=== PATIENT | female | born 1940 | race Caucasian/White ===

== ENCOUNTER → 2019-06-19 16:22 | Outpatient (CLI) | payer OTHER, SELFPAY ==
[2019-06-19 13:37] VITALS: BMI 21.9
--- NOTE | 2019-06-20 13:30 | ASPS_PTH ---
PATIENT: MUSA VAZQUEZ LOC: [facility] U#:[id number] AGE/SX: 84/F ROOM: RE06/19/[address]: Dr. Rosales Taylor MD : 1940 BED: DIS: SPEC #: [id number] RECD: 06/21/19 16:10 STATUS: DEMOND ARMANI #: [id number] STAN: 06/20/19 13:[address]: Rosales Taylor DEPT: CYTOLOGY RECD BY: Earl Klein ENTERED: 06/22/19 13:53 SP TYPE: ASPIRATION OTHR DR: Dr. Lukasz Patel MD Tissues: A - Thyroid gland, NOS B - Thyroid gland, NOS Procedures: Special Stain Group II Cytology Other HEADER OPERATION: Thyroid FNA PRE-OP DIAGNOSIS: Thyroid nodules TISSUE SUBMITTED: A. Right thyroid slides, B. Left thyroid slides DIAGNOSIS CYTOLOGY A. Right thyroid nodule, FNA (Smear): Atypical follicular cells of undetermined significance. Adequate for evaluation. B. Left thyroid nodule, FNA (Smear): Suggestive of benign follicular nodule with extensive cystic changes. See cytology study and comment. SJ:avis 06/23/2019 COMMENT Immediate cytologic evaluation to determine adequacy is not applicable. Correlation with clinical, radiologic findings and appropriate follow up are necessary. CYTOLOGY STUDY Slides are reviewed. B. Specimen is limited in evaluation due to lack of adequate number of follicular cells. The specimen predominantly consists of numerous macrophages and a few clusters of benign follicular cells. Case has been reviewed in consultation with Dr. Valdivia who concurs with the above diagnosis. IDC:AM CYTOLOGY GROSS A. Received are 6 smears labeled with the patient's name and designated per the requisition as right thyroid. Submitted for staining. B. Received are 6 smears labeled with the patient's name and designated per the requisition as left thyroid. Submitted for staining. / RB:chandrakant 06/22/19 TC: 5 CPT: 65882 x2
== END ==
PROVIDERS: Family Provider Family Medicine; PCP Family Medicine; Referring Provider Surgery; Visit Provider Surgery
DX: E04.2 Nontoxic multinodular goiter (principal)
CPT/HCPCS: 88161; 88313

== ENCOUNTER 2019-08-04 09:29 | Observation (INO) | payer MEDICARE, SELFPAY ==
[2019-07-09 06:55] VITALS: BMI 21.9
--- NOTE | 2019-07-09 08:40 | HP_ITS ---
Intake Vital Signs 07/09/19 Body Mass Index (BMI) 21.9 Intake Visit Reasons: thyroid FNA Chief Complaint: post thyroid FNA Title Attorney Required: No Is patient in pain?: No Allergies No Known Allergies Allergy (Verified 07/09/19 09:21) Medications ascorbic acid (vitamin C) 500 mg tablet 500 mg PO DAILY 06/03/19 [History Confirmed 07/09/19] cholecalciferol (vitamin D3) 1,000 unit capsule 1,000 unit PO DAILY 06/03/19 [History Confirmed 07/09/19] ergocalciferol (vitamin D2) 400 unit tablet 400 unit PO DAILY 06/03/19 [History Confirmed 07/09/19] garlic 1,000 mg capsule 1,000 mg PO QPC 06/03/19 [History Confirmed 07/09/19] geriatric multivit with iron and minerals tablet 1 tab PO DAILY 06/03/19 [History Confirmed 07/09/19] lecithin 1,200 mg capsule 1,200 mg PO DAILY 06/03/19 [History Confirmed 07/09/19] lutein 6 mg tablet 6 mg PO DAILY 06/03/19 [History Confirmed 07/09/19] omega-3 fatty acids 1,000 mg capsule 1,000 mg PO BID cap 06/03/19 [History Confirmed 07/09/19] vitamin B complex capsule 1 cap PO DAILY 06/03/19 [History Confirmed 07/09/19] Is last menstrual period known: No Post menopausal: Yes Patient : No PFSH Medical History Multiple thyroid nodules (Acute) Thyroid nodule (Acute) Surgical History Status post biopsy of thyroid gland (Acute ~05/2019) history excision uterine fibroids (Acute) Family History Grandmother CVA (cerebral vascular accident) Social History (Updated 07/09/19 @ 17:22 by Rosales Taylor MD) Smoking Status: Former smoker alcohol intake: never substance use type: does not use HPI HPI HPI: MUSA VAZQUEZ, is a 78 F who presents to the office today for HPI HPI Surgical H&P: Yes HPI: MUSA VAZQUEZ, is a 78 F who presents to the office today for surgical follow- up regarding bilateral thyroid fine-needle aspiration that I performed for her on June 19, 2019. She had a 2.8 cm nodule on the right and a 1.1 cm nodule on the left. They cytology on the right shows atypical follicular cells of undetermined significance. The cytology of the left suggests benign follicular nodule with extensive cystic change. She returns now for discussion regarding definitive surgical management. Intake Visit Reasons: Thyroid Nodules CT/US [facility] - aware to bring disc Title Attorney Required: No Is patient in pain?: No Allergies No Known Allergies Allergy (Unverified 06/03/19 08:19) Medications ascorbic acid (vitamin C) 500 mg tablet 500 mg PO DAILY 06/03/19 [History Confirmed 06/03/19] cholecalciferol (vitamin D3) 1,000 unit capsule 1,000 unit PO DAILY 06/03/19 [History Confirmed 06/03/19] ergocalciferol (vitamin D2) 400 unit tablet 400 unit PO DAILY 06/03/19 [History] garlic 1,000 mg capsule 1,000 mg PO QPC 06/03/19 [History Confirmed 06/03/19] geriatric multivit with iron and minerals tablet 1 tab PO DAILY 06/03/19 [History Confirmed 06/03/19] lecithin 1,200 mg capsule 1,200 mg PO DAILY 06/03/19 [History Confirmed 06/03/19] lutein 6 mg tablet 6 mg PO DAILY 06/03/19 [History Confirmed 06/03/19] omega-3 fatty acids 1,000 mg capsule 1,000 mg PO BID cap 06/03/19 [History Confirmed 06/03/19] vitamin B complex capsule 1 cap PO DAILY 06/03/19 [History Confirmed 06/03/19] PFSH Medical History Thyroid nodule (Acute) Surgical History (Updated 06/03/19 @ 08:17 by Vira Stahl) history excision uterine fibroids (Acute) Family History (Updated 06/03/19 @ 08:18 by Vira Stahl) Grandmother CVA (cerebral vascular accident) Social History (Updated 06/03/19 @ 08:43 by Rosales Taylor MD) Smoking Status: Former smoker alcohol intake: never substance use type: does not use HPI HPI HPI: MUSA VAZQUEZ, is a 78 F who presents to the office today for surgical consultation regarding incidentally identified bilateral thyroid nodules. The patient is kindly referred by Dr. Lukasz Patel and a written compromise surgical consult recommendations will be returned to him. Patient is a 78-year-old female. She has never previously had any history of thyroid disease. No history of head neck radiation treatment. No family history of thyroid disease. She has no difficulty swallowing. No neck pain. No hoarseness. She was a very remote cigarette smoker but quit 45 years ago. She did detect a nodule at the left sternoclavicular joint. To assist with that on May 08, 2019 at [facility] she had a CT neck. This demonstrated a partially enhancing right thyroid nodule measuring 2.3 x 1.5 x 1.5 cm. There was felt to be a sub-centimeter nodule on the left. There were no enlarged lymph nodes. The left sternoclavicular articulation had a 1.3 x 1.4 x 1.7 cm fluid collection. Scarring in the pulmonary apices were identified. This is being followed up with Dr. Patel. On May 20, 2019 at [facility] she had a thyroid ultrasound. The right gland measures 2.8 cm in maximum dimension with a well marginated 2.4 cm nodule. The left lobe measures 3.1 cm in length and there is a 11 mm nodule with moderately suspicious features. Follow-up was recommended at 1 and 2 and 3 and 5 years. HPI HPI HPI: MUSA VAZQUEZ, is a 78 F who presents to the office today for ROS General General: No weight change, appetite, fatigue, colon cancer, breast cancer or weakness HEENT HEENT: No difficulty swallowing, eye injury, eye surgery, swollen glands or hoarseness Endo Endocrine: No thyroid disease, diabetes mellitus, thyroid cancer, Hair loss, heat intolerance or cold intolerance Skin Skin: No rash or changing moles Breast Breast: No left breast lump, right breast lump, nipple discharge, breast pain, abnormal mammogram, abnormal US or breast enlargement Musc Musculoskeletal: No back problems, arthritis, rheumatoid arthritis, gout or joint pain Cardio Cardiovascular: No murmur, pacemaker, heart disease, atrial fibrillation, high blood pressure, heart attack, heart stent, palpitations, shortness of breat with exertion or chest pain Psych Psychiatric: No depression, anxiety or hearing voices Resp Respiratory: No shortness of breath, No sleep apnea, No cough, No COPD, No asthma, No emphysema, No wheezing Gastro Gastrointestinal: No abdominal pain, No nausea or vomiting, No diarrhea, No constipation, No blood in stool, No acid reflux, No hemorrhoids, No ulcers, No gallbladder problem, No black,tarry stools Deshaun Hematologic: No blood thinners, No blood disorders, No bleeding, No anemia, No blood clots Neuro Neurologic: No system reviewed and no additional complaints, except as docu, No as per HPI, No abnormal walking, No abnormal hearing, No abnormal movements, No abnormal speech, No behavioral changes, No burning sensations, No confusion, No seizure-like activity, No unsteadiness, No dizziness, No localized weakness, No frequent falls, No headache(s), No lack of coordination, No loss of vision, No memory loss, No numbness, No other visual disturbances, No radiating pain, No restless legs, No sensory deficit, No fainting, No tingling, No tremor(s), No weakness, No other Exam Neck Other: Supple, nontender, no adenopathy, thyroid difficult to palpate not remarkable. Carotids are 3+ bilateral. Soft 1/6 bruits bilaterally [place] is negative Chest Breast Palpation: No nipple discharge Cardio Heart Sounds: no murmurs Assessment & Plan Problems 1. Multiple thyroid nodules E04.2 Exam Const General: cooperative, healthy appearing, comfortable, no acute distress HENMT Head: normal to inspection Eyes General: appearance normal, both eyes and all related structures Resp Effort & Inspection: normal respiratory effort Auscultation: clear to auscultation bilaterally Cardio Rate: regular rate Rhythm: regular rhythm GI Palpation: soft, no hepatosplenomegaly Auscultation: normal bowel sounds Skin General: no rashes or lesions noted Neuro General: alert, awake Cognition: normal cognition Extrem General: no calf tenderness bilaterally Psych Affect: normal affect Assessment & Plan Problems 1. Multiple thyroid nodules E04.2 Plan I have discussed treatment options with the patient. We have discussed right thyroid lobectomy versus total thyroidectomy versus ongoing observation. Extensively the technique, benefit, risks, alternatives have been discussed. She is well aware of the potential injury risk to parathyroids and recurrent laryngeal nerve. She is aware of a total thyroidectomy is pursued that the patient will require lifelong thyroid replacement therapy. She states that she takes multiple vitamin supplements and has no trouble taking pills. She has had an opportunity to ask and have questions answered. Although she is age 78 she demonstrates an extraordinarily high quality of life. With that in mind we will schedule and proceed at her discretion with a total thyroidectomy. 30-minute discussion CC: Dr. Lukasz Taylor M.D., F.A.C.S. Coding Level of Care Code Off vis,est,level 3 Diagnoses Multiple thyroid nodules E04.2 07/09/19 1722 <Electronically signed by Rosales willis MD> Date _ Rosales Taylor MD I have re-examined the patient. There are no clinical changes since date of exam.
--- NOTE | 2019-07-29 08:11 | EKG12_ITS ---
Test Reason : Blood Pressure : / mmHG Vent. Rate : 058 BPM Atrial Rate : 058 BPM P-R Int : 154 ms QRS Dur : 108 ms QT Int : 400 ms P-R-T Axes : 048 -24 012 degrees QTc Int : 392 ms Sinus bradycardia Incomplete right bundle branch block Voltage criteria for left ventricular hypertrophy Abnormal ECG Confirmed by ALMA DÍAZ ([id number]), online editor WENDY PAZ ([id number]) on 08/03/2019 12:08:13 PM Referred By: Rosales Taylor Confirmed By:ALMA DÍAZ
[2019-07-29 09:24] LABS: Hematocrit 46.5 % (37-47); Hemoglobin 14.8 g/dL (12.0-15.0); Mean Corp Hgb Conc 31.8 g/dL (32-36); Mean Corpuscular Hgb 29.5 pg (27.0-32.0); Mean Corpuscular Volume 92.8 fL (81-99); Mean Platelet Vol. 10.2 fl (6.2-12.0); Platelet Count 279 K/mm3 (150-450); RBC Distribution Width CV 13.2 % (11.6-14.6); RBC Distribution Width SD 44.5 fl (35.1-43.9); Red Blood Count 5.01 M/mm3 (4.2-5.4); White Blood Count 7.5 K/mm3 (4.4-11.0)
[2019-07-29 10:09] LABS: Anion Gap 8 (5-15); BUN 13 mg/dL (7-18); BUN/Creat Ratio 13.5 RATIO (10-20); Calcium,Total 9.5 mg/dL (8.5-10.1); Chloride 107 mmol/L (98-107); Creatinine, Serum 0.96 mg/dL (0.55-1.02); EST Glomerular Filtration Rate 60 mL/min (>60); Est Glom Filt Rate - Afr Amer 72 mL/min (>60); Glucose 67 mg/dL (74-106); Phosphorus 2.4 mg/dL (2.5-4.9); Potassium 4.5 mmol/L (3.5-5.1); Sodium Level 143 mmol/L (136-145); Thyroid Stim Hormone (TSH) 4.82 uIU/mL (0.358-3.74)
[2019-08-04] VITALS (10 sets, daily range): BP systolic 121–141; BP diastolic 44–63; PULSE 54–79; RESP 16–18; TEMP 36.3–36.7; O2SAT 95–99; BMI 21.5
--- NOTE | 2019-08-04 | IMM_PTH ---
PATIENT: MUSA VAZQUEZ LOC: [facility] U#:[id number] AGE/SX: 78/F ROOM: MS304 RE08/04/[address]: Dr. Rosales Taylor MD : 1940 BED: 1 DIS: 08/05/2019 SPEC #: [id number] RECD: 08/06/19 11:07 STATUS: DEMOND REQ #: [id number] STAN: 08/04/19 00:[address]: Rosales Taylor DEPT: IMMUNOHISTOCHEMISTRY RECD BY: Татьяна Black ENTERED: 08/06/19 11:11 SP TYPE: IMMUNO OTHR DR: Dr. Lukasz Patel MD Tissues: B - Thyroid gland, NOS A - Lymph node, NOS Procedures: CK8 (initial) CD56 (add) CK19 (add) GAL-3 (add) HBME (add) PHYSICIAN & INSTITUTION [place] [id number] SPECIMEN INFORMATION: Tissue Source: A - Pretracheal lymph node biopsy, B - Total thyroid Clinical Info: Multiple thyroid nodules Specimen Number: [id number] A, B1, B4, B10 CPT code: 64882 x2, 10851 x10 METHODOLOGY: Deparaffinized sections of prefer/formalin-fixed tissue or PAP/DQ stained slides are incubated with monoclonal/polyclonal antibodies/oligonucleotide probes. Localization is made via biotin free immunoperoxidase method. Appropriate controls are performed and reacted as expected. Results on target cell population are indicated in the following table: RESULTS: ANTIBODY / CLONE RESULT Block A CK8 (16arphV29) negative CK19 (A53-B/A2.26) negative Block B1 CK8 ([id number]) negative CK19 (A53-B/A2.26) negative Block B4 HBME1 (HBME-1) negative CK19 (A53-B/A2.26) negative GAL3 (9C4) negative CD56 (123C3.D5) positive Block B10 HBME1 (HBME-1) positive CK19 (A53-B/A2.26) positive GAL3 (9C4) positive CD56 (123C3.D5) negative These tests were developed and their performance characteristics determined by [facility]. They may not have been cleared or approved by the U.S. Food and Drug Administration. The FDA has determined that such clearance or approval is not necessary. The above immunohistochemical/dualISH markers are ordered and reviewed by the Pathologist. INTERPRETATION: A. Pretracheal lymph node, biopsy: One lymph node, negative for metastatic carcinoma. B. Total thyroid: Papillary thyroid carcinoma (block B10). Consistent with adenomatoid nodule (block B4). Four out of four lymph nodes negative for metastatic carcinoma (block B1) JANEEN:spencer 08/06/19
--- NOTE | 2019-08-04 | LYMN_PTH ---
PATIENT: MUSA VAZQUEZ LOC: [facility] U#:[id number] AGE/SX: 78/F ROOM: [facility] – [place] RE08/04/[address]: Dr. Rosales Taylor MD : 1940 BED: 1 DIS: 08/05/2019 SPEC #: [id number] RECD: 08/04/19 07:51 STATUS: DEMOND ARMANI #: [id number] STAN: 08/04/19 00:[address]: Rosales Taylor DEPT: SURGICAL PATHOLOGY RECD BY: Татьяна Blcak ENTERED: 08/04/19 09:46 SP TYPE: LYMPH NODE OTHR DR: Dr. Lukasz Patel MD Tissues: A - LYMPH NODE BIOPSY B - Thyroid gland, NOS C - Thyroid gland, NOS Procedures: Frozen Section (charge) Surgery Specimen Level IV Surgery Specimen Level V HEADER OPERATION: Thyroidectomy PRE-OP DIAGNOSIS: Multiple thyroid nodules E04.2 TISSUE SUBMITTED: A - Pretracheal lymph node for FS at 0744, B - Total thyroid, suture at anterior superior aspect of right lobe, C - Additional thyroid tissue from the right superior FROZEN SECTION DIAGNOSIS A. Pretracheal lymph node, biopsy: Benign lymph node tissue. :spencer 08/04/19 MICROSCOPIC DIAGNOSIS A. Pretracheal lymph node, biopsy: One lymph node, negative for metastatic carcinoma. See comment. B. 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 Multinodular goiter with adenomatoid nodules and focal cystic changes. Four out of four lymph nodes, negative for metastatic carcinoma. See comment. C. Additional thyroid tissue from right superior: Chronic lymphocytic thyroiditis. SJ:spencer 08/06/19 THYROID CANCER SUMMARY: (including specimen A, B and C) Procedure - total thyroidectomy and pretracheal lymph node biopsy Received - fresh, specimen A In formalin, specimen B & C Specimen integrity - partly disrupted Specimen size: Total thyroidectomy specimen: Right lobe - 3.5 x 2.5 x 1 cm Left lobe - 2.5 x 2 x 1 cm Isthmus - 0.7 x 0.5 x 0.2 cm Pretracheal lymph node - 1 x 0.7 x 0.5 cm Additional thyroid tissue from right superior - 1.5 x 0.5 x 0.5 cm Specimen weight - B - total thyroidectomy specimen, 11.2 gm, C - additional thyroid tissue, from superior, 0.2 gm Tumor focality - unifocal Tumor laterality - left lobe Tumor size - 1 x 1 x 0.5 cm Histologic type - papillary carcinoma, Variant - classical (usual) Architecture - classical (papillary) Cytomorphology - classical Margins - uninvolved by carcinoma. The tumor is <0.1 cm away from closest anterior and posterior margins. Tumor capsule - none Tumor capsular invasion - not applicable Lymph-Vascular invasion - not identified Perineural invasion - not identified Extrathyroidal extension - present, focal and minimal Regional lymph nodes: Number examined - 5 (including specimen A & B) Number involved - 0 Distant metastasis - not applicable Additional pathologic findings - multinodular goiter with adenomatoid nodule and focal cystic changes. - Chronic lymphocytic thyroiditis, consistent with Vane thyroiditis. Ancillary studies - please refer to IHC ([id number]). PATHOLOGIC STAGE: pT1a pN0 Mx The above summary is in compliance with [employer] (CAP) Cancer Protocols Checklist and [place] Joint Committee on Cancer (AJCC), Staging Manual, 8th Ed. COMMENT A & B. Immunohistochemistry ([id number]) supports the above diagnosis. Please make reference to previous specimen ([id number]) right thyroid nodule, FNA with diagnosis of atypical follicular cells of undetermined significance and left thyroid nodule, FNA with diagnosis of suggestive of benign follicular nodule with extensive cystic changes. These slides are reviewed again. Case has been reviewed in consultation with Dr. Valdivia who concurs with the above diagnosis. IDC:AM MICROSCOPIC DESCRIPTION Slides are reviewed. GROSS DESCRIPTION A - Received fresh for frozen section diagnosis labeled with the patient's name is a specimen designated pretracheal lymph node. The specimen consists of a piece of wild-pink soft tissue measuring 1 x 0.7 x 0.5 cm. The entire specimen is submitted for frozen section diagnosis in one cassette. / : 08/04/19 B - Received in fixative is one container labeled with the patient's name and designated total thyroid. The specimen consists of a total thyroidectomy specimen consisting of total thyroid and also three minute detached pieces of pink-red soft tissue weighing in aggregate 11.2 gm. The detached pieces of tissue measure in aggregate 1.5 x 0.5 x 0.2 cm. The right thyroid lobe measures 3.5 x 2.5 x 1 cm and left thyroid lobe measures 2.5 x 2 x 1 cm. The isthmus measures 0.7 x 0.5 x 0.2 cm. The external surface appears partly ragged. The specimen is oriented by a suture at anterior superior aspect of right lobe. The specimen is inked as follows: posterior surface right lobe, left lobe and isthmus - black, anterior surface right lobe - blue, anterior surface left lobe - green and anterior surface isthmus - yellow. Serial sections of the right lobe reveal multiple wild, solid nodules. The largest nodule measures 1.5 x 1 x 1 cm. This nodule is present in the middle portion of the right lobe. Additional smaller nodules are also noted. Sections of the left lobe reveal a wild, solid nodule measuring 1 x 1 x 0.5 cm. The nodule in the left lobe is present in the superior portion of the left lobe. Sections of the isthmus do not reveal any mass lesion. The entire specimen is submitted in 13 cassettes as follows: 1 - isthmus and detached pieces of tissue, 2-9 - right lobe (2 containing most superior portion and 9 containing most inferior portion, 10-13 - left lobe (10 containing most superior portion and 13 containing most inferior portion). / : 08/05/19 C - Received in fixative is one container labeled with the patient's name and designated additional thyroid tissue from right superior. The specimen consists of a piece of pink-red soft tissue measuring 1.5 x 0.5 x 0.5 cm and weighing 0.2 gm. The specimen is bisected and totally submitted in one cassette. / SJ:spencer 08/04/19 TC:0 CPT: 08591, 10332 x2, 64177
[2019-08-04] MEDS: Lactated Ringers 1,000 ML 100 ML IV ×2 (06:10→06:15)
--- NOTE | 2019-08-04 07:18 | DCINST_ITS ---
<Rosales Taylor - Last Filed: 08/04/19 07:18> Discharge Diet: Light diet - advance as tolerated - if you have questions about your diet instructions, please talk to you doctor. Discharge Activity: May Not Drive - for 3-5 days or while taking narcotic pain medicine. May shower in (days): 1 Lifting Restrictions: 10 pounds Call your doctor if your incision/area has: Continuous Slow Oozing, Sudden Increased Bleeding, Increased Pain/ Swelling, Increased Redness, Foul Smelling Discharge Call your doctor if you observe: Fever of 101 or Higher Suture Line Care: Avoid Pulling/Pushing, Avoid Pinching/Bending Additional Dressing/Incision Instructions:: The tape and gauze dressing may be removed on Saturday. You may shower over your surgical glue. If clothing rubs on the incision you may reapply a gauze and tape bandage or oversized Band-Aid as needed Allergies/Adverse Reactions: Allergies No Known Allergies Allergy (Verified 08/04/19 05:59) Medications to take at Discharge ascorbic acid (vitamin C) 500 mg tablet 500 mg PO DAILY 06/03/19 cholecalciferol (vitamin D3) 1,000 unit capsule 1,000 unit PO DAILY 06/03/19 garlic 1,000 mg capsule 1,000 mg PO QPC 06/03/19 geriatric multivit with iron and minerals tablet 1 tab PO DAILY 06/03/19 lecithin 1,200 mg capsule 1,200 mg PO DAILY 06/03/19 lutein 6 mg tablet 20 mg PO SUWESA 06/03/19 omega-3 fatty acids 1,000 mg capsule 1,000 mg PO BID cap 06/03/19 vitamin B complex capsule 1 cap PO DAILY 06/03/19 Calcium Carb/D3/Magnesium/Zinc [Sipqaju-Izn-Bscg-Vit D Tablet] 1 ea PO BID 07/28/19 Vitamin E 1,000 unit PO SUWESA 07/28/19 levothyroxine 88 mcg tablet 88 mcg PO DAILY #60 tab 07/29/19 Hydrocodone Bitart/Apap 5-325 [[place] 5MG-325MG] 1 tab PO Q6H PRN PRN 2 Days #6 tab 08/04/19 The following prescriptions were given: Hydrocodone Bitart/Apap 5-325 [[place] 5MG-325MG] 1 tab PO Q6H PRN PRN 2 Days #6 tab PRN Reason: Pain Transmission Status: Received by [id number] Primary Care Physician: Lukasz Patel [Primary Care Provider] - Test Results: Test results from this visit will be discussed in further detail at your follow- up appointment, if applicable. Please Follow Up With: Rosales Taylor MD - [phone] When: Call to make an appointment to be seen in about 10 days. <Gem Guzman - Last Filed: 08/05/19 08:23> Test Results: Test results from this visit will be discussed in further detail at your follow- up appointment, if applicable.
[2019-08-04] MEDS: Bupivacaine Mpf 0.5% 30 ML VIAL (09:18)
--- NOTE | 2019-08-04 09:34 | PCM.OPRPT ---
Problem List (1) Multiple thyroid nodules Status: Acute Report of Operation Date of Procedure: 08/04/19 Pre-Operative Diagnosis: Bilateral thyroid nodules with atypical follicular cells on the right Post-Operative Diagnosis: Same Surgery/Procedure Performed:: Total thyroidectomy Description of Surgical Findings:: Timeout and informed consent was obtained. 78-year-old female taken out from placement table underwent general endotracheal intubation anesthesia. Head of bed was slightly elevated. The neck was gently extended. He was prepped with Betadine. The suprasternal transverse incision was created sharp dissection carried down through the subtenons tissue platysmal flaps were raised strap muscles were incised vertically access was gained to the smaller left lobe of thyroid. It was very adherent to the musculature and had to be carefully bluntly and sharply dissected free. Harmonic Scalpel was used generously for hemostasis. Were needed small hemoclips were used as well. The inferior pole was identified carefully dissected free and the superior pole was addressed in a similar fashion. Superior pole vessels identified and carefully secured. Most of the superior parathyroid was identified and secured the gland was then rotated anteriorly and the course of the recurrent laryngeal nerve identified and protected. Dissection performed directly upon the posterior aspect of the gland as the gland was then carefully dissected off the anterior surface of the trachea. The ligament of David was quite adherent and careful dissection was required. Having elevated the left lobe similar process was instituted on the right. The larger nodule was located superior in the right and this added to the tedious and this of the dissection. But in a similar fashion completed that. I identified the superior parathyroid on the right and preserved that. There had been a lymph node in the pretracheal area at the isthmus inferiorly. I resected that at the beginning the case sent that for frozen section it was felt to be consistent with a benign lymph node. After completion of the total thyroidectomy inspected the neck. There was still some residual firm tissue superior on the right. I carefully bluntly and Harmonic Scalpel dissected that free. Suspected that that was a portion of the superior lobe of the right thyroid. Palpation failed to reveal any residual adenopathy. Hemostasis was intact. Snow was placed both sides of the neck. Then I approximated the strap muscles midline with 3-0 Vicryl. The platysma was approximated with the same. Skin edges approximate interrupted 5-0 Vicryl subdermal stitches. The leilani-incisional was anesthetized with 0.5% Marcaine a total 10 cc was used. Surgical glue was applied followed by Telfa and tape dressings. Sponge and instrument and needle counts reported surgical correct patient tolerated procedure well was taken to recovery in satisfactory condition without apparent complication. Specimens total thyroid. Anterior tracheal lymph node. Residual tissue from the right superior pole. Drains none. Blood loss minimal. Rosales Taylor M.D., F.A.C.S. Anesthesiologist: Pranav Francis
[2019-08-04] MEDS: Ondansetron 4 MG/2 ML Vial IV (11:41)
[2019-08-04] MEDS: 0.9% NaCl Peripheral Flush Adult/Peds IV (11:41)
[2019-08-04] MEDS: Acetaminophen 325 MG Tablet 650 MG PO (13:32)
[2019-08-04 16:57] LABS: Calcium,Total 8.5 mg/dL (8.5-10.1)
--- NOTE | 2019-08-04 18:25 | PCM.PN.BLA ---
Progress Note Voice slightly hoarse but waxes and wanes. Mild edema neck with some anterior neck swelling Pt with no pain or complaint of pressure or difficulty swallowing Will keep pt upright and apply ice to limit swelling Will continue observation
[2019-08-05 02:05] VITALS: BP 131/53; PULSE 71; RESP 18; TEMP 37.1; O2SAT 97
[2019-08-05] MEDS: Levothyroxine 88 MCG Tablet PO (05:13)
[2019-08-05 05:36] LABS: Calcium,Total 8.4 mg/dL (8.5-10.1)
--- NOTE | 2019-08-05 06:05 | PCM.PN.SRG ---
Patient Problems: Active and Suspected Problems (Last Reviewed 07/09/19 @ 09:20 by Karley Cook) Hypothyroidism (Acute) Subjective: Pt without complaint - Physical Exam General: Alert, Oriented x3, Cooperative, No apparent distress HEENT: - - neck supple, less swelling Neurological: - - voice wax and wanes. slightly hoarse Vital Signs Temp Pulse Resp BP Pulse Ox 98.7 F 71 18 131/53 H 97 08/05/19 02:05 08/05/19 02:05 08/05/19 02:05 08/05/19 02:05 08/05/19 02:05 Oxygen Delivery Method Room Air Weight: 131 lb 6.328 oz Body Mass Index (BMI) 21.5 Intake and Output for Last 24 Hours 08/03/19 08/04/19 08/05/19 23:59 23:59 23:59 Intake Total 1982.33 / 1982.33 516.67 / 516.67 Output Total 652 650 / 650 Balance 1981.33 / 1331.33 -133.33 / -133.33 Laboratory Tests Past 24 Hrs 08/04/19 08/05/19 16:10 04:50 Calcium 8.5 8.4 L Medical Necessity - Tobacco Use Smoking Status: Former smoker Assessment/Plan All Active Problems (Last Reviewed 07/09/19 @ 09:20 by Karley Cook) Hypothyroidism (Acute) Multiple thyroid nodules (Acute) Pt was a difficult intubation and had extensive operative dissection. I anticipate complete resolution of hoarseness. Will follow in office. Calcium stable
[2019-08-05 08:37] VITALS: BP 113/41; PULSE 63; RESP 18; TEMP 36.7; O2SAT 97
== END 2019-08-05 09:27 | disposition home or self-care (01) ==
LOC: SDC 10:02
PROVIDERS: Admitting Provider Surgery; Family Provider Family Medicine; PCP Family Medicine; Referring Provider Surgery; Visit Provider Surgery
PROC: (CPT 60240; principal; 2019-08-04 07:00)
DX: C73 Malignant neoplasm of thyroid gland (principal); E03.9 Hypothyroidism, unspecified; Z79.899 Other long term (current) drug therapy; I45.10 Unspecified right bundle-branch block; Z87.891 Personal history of nicotine dependence
CPT/HCPCS: 60240; 36415; 80048; 82310; 84100; 84443; 85027; 88305; 88307; 88331; 88341; 88342; 93005; 96361; 96374; 99218; J7120; A4216; G0378; G0379; J2405

== ENCOUNTER → 2021-05-15 08:51 | Outpatient (CLI) | payer MEDICARE, SELFPAY ==
[2021-05-15 08:31] VITALS: BMI 21.5
[2021-05-15 12:46] LABS: Vitamin D,25 Hydroxy 42.1 ng/mL
[2021-05-15 13:01] LABS: T4 Free Direct 1.49 ng/dL (0.76-1.46); Thyroid Stim Hormone (TSH) 0.22 uIU/mL (0.358-3.74)
[2021-05-22 07:25] LABS: Anti-Thyroglobulin AB 1.3 IU/mL (0.0-0.9); Thyroglobulin RIA < 2.0 ng/mL (.)
== END ==
PROVIDERS: PCP Family Medicine; Visit Provider Internal Medicine Endocrinology, Diabetes & Metabolism
DX: E04.2 Nontoxic multinodular goiter (principal); C73 Malignant neoplasm of thyroid gland; E89.0 Postprocedural hypothyroidism; E55.9 Vitamin D deficiency, unspecified
CPT/HCPCS: 36415; 82306; 84432; 84439; 84443; 86800